=== PATIENT | female | born 1990 ===

== ENCOUNTER 2021-09-29 12:19 | Emergency (ER) | payer SELFPAY ==
[2021-09-29 18:25] VITALS: BP 128/75
[2021-09-29 18:37] LABS: Alanine Aminotransferase 8 units/L (7-56); Albumin 3.6 g/dL (3.9-5); Blood Urea Nitrogen 5 mg/dL (7-17); Calcium 8.5 mg/dL (8.4-10.2); Hemolysis Index 6
[2021-09-29 18:39] LABS: Hematocrit 34.8 % (30.3-42.9); Hemoglobin 11.6 gm/dl (10.1-14.3); Mean Corpuscular HGB Conc 33 % (30-34); Mean Corpuscular Volume 81 fl (79-97); Platelet Count 199 K/mm3 (140-440); Red Blood Count 4.28 M/mm3 (3.65-5.03); Red Cell Distribution Width 14.4 % (13.2-15.2)
[2021-09-29 18:43] LABS: BUN/Creatinine Ratio 13
[2021-09-29 19:02] LABS: Bacteria,Urine 1+ /HPF (Negative); Bilirubin,Urine NEG (Negative); Blood,Urine NEG (Negative); Color,Urine Straw (Yellow); Protein,Urine <15 mg/dL mg/dL (Negative); Urobilinogen,Urine < 2.0 mg/dL (<2.0)
--- NOTE | 2021-09-29 19:02 | Ultrasound Report ---
ULTRASOUND OBSTETRIC INDICATION / CLINICAL INFORMATION: preg, abdominal pain and cramping.. TECHNIQUE: Transabdominal. COMPARISON: None available. FINDINGS: There is a single intrauterine . Biparietal Diameter = 7.29 cm = 29.2 weeks.days Head Circumference = 28.07 cm = 30.5 weeks.days Abdominal Circumference = 26.78 cm = 30.6 weeks.days Femur Length = 5.68 cm = 29.4 weeks.days Average Ultrasound Age (AUA) = 30.1 weeks.days Heart Rate: 141 beats per minute. Estimated Weight in grams (if calculated): 1551 Position: cephalic. Cervix: closed. Length in cm (if measured): 4.0 Placenta: Grade 0 and free of the os. Amniotic Fluid Volume: Qualitatively normal Maternal Adnexa: No significant abnormality. IMPRESSION: 1. Single, living intrauterine with estimated sonographic age of 30.1 weeks.days 2. No significant sonographic abnormality. Signer Name: Karl Wright MD Signed: 09/29/2021 6:58 PM Workstation Name: [id number]
[2021-09-29] MEDS ORDERED: cephALEXin 500 MG CAP PO ONE (19:27)
[2021-09-29] MEDS ORDERED: POTASSIUM CHLORIDE ER 20 MEQ TAB PO ONE (19:27)
--- NOTE | 2021-09-29 19:30 | Emergency Department Report ---
ED Abdominal Pain HPI - General Chief Complaint: Medical Clearance Stated Complaint: NO OB DR Time Seen by Provider: 09/29/21 17:46 Source: patient Mode of arrival: Ambulatory Limitations: Language Barrier (Patient is [place] Citizen-speaking only and court interpreter phone line was used to communicate with patient.) - History of Present Illness Initial Comments: 31-year-old female with no past medical history presents to the emergency department for evaluation of intermittent abdominal cramping. She states that she thinks that she is about 5 months but has not had any care or testing, so she decided to come here to make sure that e verything was okay with the baby. Patient is G5, P4. She has not had any vaginal bleeding and she denies fever and dysuria. She states that she only has the cramping intermittently and is not currently having any cramping. She states that she does not have any insurance neither Social Security number so has not been able to obtain any care. MD Complaint: abdominal pain -: Gradual Location: diffuse Radiation: none Migration to: no migration Severity scale (0 -10): 1 Quality: cramping Consistency: intermittent, now resolved Associated Symptoms: denies: nausea, vomiting, diarrhea, fever, chills, dysuria, hematemesis, hematochezia, melena, hematuria, anorexia, syncope - Related Data Previous Rx's Medication Instructions Recorded Last Taken Type cephALEXin [Keflex] 500 mg PO Q12HR #14 cap 09/29/21 Unknown Rx Allergies Allergy/AdvReac Type Severity Reaction Status Date / Time No Known Allergies Allergy Verified 09/29/21 18:29 ED Review of Systems ROS: Stated complaint: NO OB DR Other details as noted in HPI Comment: All other systems reviewed and negative Constitutional: denies: chills, fever ENT: denies: congestion Respiratory: denies: cough, shortness of breath, SOB with exertion, SOB at rest, stridor, wheezing Cardiovascular: denies: chest pain, palpitations, dyspnea on exertion, orthopnea Gastrointestinal: abdominal pain. denies: nausea, vomiting, diarrhea, karen temesis, melena, hematochezia Genitourinary: denies: urgency, dysuria, frequency, hematuria, discharge, abnormal menses Musculoskeletal: denies: back pain Skin: denies: rash, lesions Neurological: denies: headache, weakness, numbness, paresthesias, abnormal gait, vertigo Hematological/Lymphatic: denies: easy bleeding, easy bruising ED Past Medical Hx - Social History Smoking Status: Never Smoker Substance Use Type: None - Medications Home Medications: Home Medications Medication Instructions Recorded Confirmed Last Taken Type cephALEXin [Keflex] 500 mg PO Q12HR #14 cap 09/29/21 Unknown Rx ED Physical Exam - General Limitations: Language Barrier ([place] Citizen-speaking only and court interpreter phone line was used to communicate with patient) General appearance: alert, in no apparent distress - Head Head exam: Present: atraumatic, normocephalic - Eye Eye exam: Present: normal appearance. Absent: conjunctival injection - Neck Neck exam: Present: normal inspection, full ROM. Absent: tenderness, lymphadenopathy - Respiratory Respiratory exam: Present: normal lung sounds bilaterally. Absent: respiratory distress, wheezes, rales, rhonchi, stridor, chest wall tenderness - Cardiovascular Cardiovascular Exam: Present: regular rate - GI/Abdominal GI/Abdominal exam: Present: soft, normal bowel sounds. Absent: tenderness, guarding, rebound, rigid - Extremities Exam Extremities exam: Present: normal inspection, full ROM, normal capillary refill. Absent: tenderness, pedal edema, joint swelling, calf tenderness - Back Exam Back exam: Present: normal inspection. Absent: CVA tenderness (R), CVA tenderness (L), vertebral tenderness - Neurological Exam Neurological exam: Present: alert, oriented X3, normal gait - Psychiatric Psychiatric exam: Present: normal affect, normal mood - Skin Skin exam: Present: warm, dry, intact, normal color ED Course Vital Signs 09/29/21 09/29/21 12:33 18:22 Temperature 98.0 F 98.1 F Pulse Rate 87 75 Respiratory 18 20 Rate Blood Pressure 103/58 128/75 [Right] O2 Sat by Pulse 98 100 Oximetry ED Medical Decision Making - Lab Data Result diagrams: 09/29/21 18:01 09/29/21 18:01 - Radiology Data Radiology results: report reviewed, image reviewed and transvaginal ultrasound: FINDINGS: There is a single intrauterine . Biparietal Diameter = 7.29 cm = 29.2 weeks.days Head Circumference = 28.07 cm = 30.5 weeks.days Abdominal Circumference = 26.78 cm = 30.6 weeks.days Femur Length = 5.68 cm = 29.4 weeks.days Average Ultrasound Age (AUA) = 30.1 weeks.days Heart Rate: 141 beats per minute. Estimated Weight in grams (if calculated): 1551 Position: cephalic. Cervix: closed. Length in cm (if measured): 4.0 Placenta: Grade 0 and free of the os. Amniotic Fluid Volume: Qualitatively normal Maternal Adnexa: No significant abnormality. IMPRESSION: 1. Single, living intrauterine with estimated sonographic age of 30.1 weeks.days 2. No significant sonographic abnormality. - Medical Decision Making 31-year-old female with no past medical history presents to the emergency department for evaluation of intermittent abdominal cramping. She states that she thinks that she is about 5 months but has not had any care or testing, so she decided to come here to make sure that everything was okay with the baby. Patient is G5, P4. She has not had any vaginal bleeding and she denies fever and dysuria. She states that she only has the cramping intermittently and is not currently having any cramping. She states that she does not have any insurance neither Social Security number so has not been able to obtain any care. No gross abnormalities noted on exam. Patient noted to be slightly hypokalemic on labs and was treated with one-time dose of potassium chloride 40 mEq p.o. Urine positive for UTI and patient will be treated with 7-day course of Keflex. Ultrasound positive for IUP at 30 weeks. Results reviewed with patient, and she is advised to follow-up with [facility] for further evaluation and management of period. She was given the names of several [facility] to follow-up with and advised to start attempting to get an appointment on tomorrow. She is advised to follow-up in the emergency department. She verbalizes understanding of and agreement with plan of care. Critical care attestation.: If time is entered above; I have spent that time in minutes in the direct care of this critically ill patient, excluding procedure time. ED Disposition Clinical Impression: Abdominal cramping affecting , Hypokalemia UTI (urinary tract infection) Qualifiers: Urinary tract infection type: acute cystitis Hematuria presence: without hematuria Qualified Code(s): N30.00 - Acute cystitis without hematuria Disposition: HOME / SELF CARE / HOMELESS Is pt being admited?: No Does the pt Need Aspirin: No Condition: Stable Instructions: Abdominal Pain During , [id number], Antibiotic Medicine, Adult, [id number], and Urinary Tract Infection, Potassium Content of Foods Additional Instructions: Take medication as prescribed. Follow-up with [facility] as soon as possible. Return to the emergency department as needed. Prescriptions: cephALEXin [Keflex] 500 mg PO Q12HR #14 cap Referrals: [facility] [Provider Group] - 3-5 Days [facility], [facility] [Provider Group] - 3-5 Days [facility] [Outside] - 3-5 Days [facility] [Outside] - 3-5 Days Time of Disposition: 19:30 Print Language: TAJIK
== END 2021-09-29 20:08 | disposition home or self-care (01) ==
LOC: ED 12:19
DX: O23.43 Unspecified infection of urinary tract in pregnancy, third trimester (principal); N39.0 Urinary tract infection, site not specified; O26.893 Other specified pregnancy related conditions, third trimester; R10.84 Generalized abdominal pain; E87.6 Hypokalemia; Z3A.30 30 weeks gestation of pregnancy; Z79.899 Other long term (current) drug therapy
CPT/HCPCS: 36415; 76805; 76817; 80053; 81001; 84702; 85027; 99284

== ENCOUNTER 2021-12-01 12:31 | Inpatient (IN) | payer SELFPAY ==
[2021-12-01] MEDS ORDERED: ACETAMINOPHEN 325 MG TAB PO PRN ×2 (13:58→15:53)
[2021-12-01] MEDS ORDERED: CARBOPROST TROMETHAMINE 250 MCG/1 ML INJ IM PRN (13:58)
[2021-12-01] MEDS ORDERED: BUTORPHANOL 2 MG/1 ML INJ IV PRN ×2 (13:58)
[2021-12-01] MEDS ORDERED: OXYTOCIN 10 UNIT/1 ML INJ IM PRN (13:58)
[2021-12-01] MEDS ORDERED: ePHEDrine SULFATE 50 MG/1 ML INJ IV PRN (13:58)
[2021-12-01] MEDS ORDERED: LOPERAMIDE 2 MG CAP PO PRN (13:58)
[2021-12-01] MEDS ORDERED: miSOPROStol 200 MCG TAB PR PRN (13:58)
[2021-12-01] MEDS ORDERED: TERBUTALINE 1 MG/1 ML INJ SUB-Q PRN (13:58)
[2021-12-01] MEDS ORDERED: MINERAL OIL 30 ML ORAL LIQD PO PRN (13:58)
[2021-12-01] MEDS ORDERED: METHYLERGONOVINE MALEATE 0.2 MG/ML VIAL IM PRN (13:58)
--- NOTE | 2021-12-01 13:58 | History and Physical Report ---
History of Present Illness Date of examination: 12/01/21 Date of admission: 12/01/21 Chief complaint: I'm in labor History of present illness: 31 y/o will all prior vaginal deliveries presents to labor an delivery in active labor. She has had no care. She had one ER visit at [facility] and by that ultrasound is now 39.1 weeks. Past History Past Medical History: no pertinent history - Obstetrical History Expected Date of Delivery: 12/07/21 Actual Gestation: 39 Week(s) 1 Day(s) : 5 Para: 4 Hx # Term Pregnancies: 4 Number of Living Children: 4 Medications and Allergies Allergies Allergy/AdvReac Type Severity Reaction Status Date / Time No Known Allergies Allergy Verified 12/01/21 13:21 Home Medications Medication Instructions Recorded Confirmed Last Taken Type Vit-Fe Fumar-FA [ 1 tab PO QDAY 12/01/21 12/01/21 Unknown History Vitamin] Review of Systems All systems: negative - Vital Signs Vital signs: Vital Signs Pulse BP 98 H 115/71 12/01/21 13:07 12/01/21 13:07 Temp Pulse Resp BP Pulse Ox 90 119/76 98 12/01/21 13:48 12/01/21 13:37 12/01/21 13:48 - Physical Exam Breasts: Positive: deferred Cardiovascular: Regular rate Lungs: Positive: Clear to auscultation Abdomen: Positive: soft Genitourinary (Female): Positive: normal external genitalia Vulva: both: normal Adnexa: both: normal Extremities: Positive: normal Deep Tendon Reflex Grade: Normal +2 - Obstetrical FHR: category 1 Uterine Contraction Monitor Mode: External Cervical Dilatation: 6 Cervical Effacement Percentage: 80 station: -1 Uterine Contraction Pattern: Regular Uterine Contraction Intensity: Moderate Results All other labs normal. Assessment and Plan A: Active labor at 39.1 weeks P: Expect
[2021-12-01] MEDS ORDERED: OXYTOCIN DRIP 30 UNITS/500 ML BAG IV SCH ×2 (14:00)
[2021-12-01] MEDS ORDERED: LACTATED RINGERS 1,000 ML IV SCH (14:00)
--- NOTE | 2021-12-01 14:16 | Event Note ---
Date: 12/01/21 S: Not feeling to many contractions O: VE /, arom clear fluid, irrregular contractions A: Active labor @ 39.1 weeks P: Expect
[2021-12-01] MEDS ORDERED: LIDOCAINE (2%) 20 MG/1 ML VIAL 20 ML MDV INFILTRATI ONE (14:30)
[2021-12-01 14:38] LABS: Hematocrit 33.6 % (30.3-42.9); Mean Corpuscular HGB Conc 33 % (30-34); Mean Corpuscular Volume 74 fl (79-97); Platelet Count 224 K/mm3 (140-440); Red Blood Count 4.52 M/mm3 (3.65-5.03)
--- NOTE | 2021-12-01 15:52 | Procedure Note ---
OB Delivery Note - Delivery Date of Delivery: 12/01/21 Surgeon: RONAN DRAPER Estimated blood loss: 200cc - Vaginal Delivery presentation: vertex Delivery position: OA Intrapartum events: none Delivery augmentation: rupture of membranes Delivery monitor: external FHT, external uterine Route of delivery: Delivery placenta: spontaneous Delivery laceration: none Anesthesia: none Delivery comments: viable female 8#-6oz on 12/01 @1538 over intact perineum. Placenta delivered 3 VCI. 8/9. QBL 200 cc - Infant A at 1 minute: 8 at 5 minutes: 9
[2021-12-01] MEDS ORDERED: MAGNESIUM HYDROXIDE (MOM) ORAL LIQD UDC PO PRN (15:53)
[2021-12-01] MEDS ORDERED: WITCH HAZEL/ GLYCERIN PAD TP PRN (15:53)
[2021-12-01] MEDS ORDERED: LANOLIN/ZINC/DIMETHICONE (LANSINOH) 7 GM TP PRN (15:53)
[2021-12-01] MEDS: oxyCODONE /ACETAMINOPHEN 5-325MG TAB PO PRN ×2 (16:41→23:50)
[2021-12-01 16:53] LABS: Hepatitis C Virus Antibody Non-Reactive (NonReactive)
[2021-12-02] MEDS: oxyCODONE /ACETAMINOPHEN 5-325MG TAB PO PRN (07:42)
[2021-12-02 08:24] LABS: Hematocrit 33.8 % (30.3-42.9); Hemoglobin 10.9 gm/dl (10.1-14.3)
--- NOTE | 2021-12-02 08:57 | Progress Note ---
Assessment and Plan A: PPD # 1 - stable P: Plan discharge home in am Discharge instructions given Subjective - Subjective Date of service: 12/02/21 Principal diagnosis: PPD # 1 Interval history: 31 y/o will all prior vaginal deliveries presents to labor an delivery in active labor. She has had no care. She had one ER visit at [facility] and by that ultrasound is now 39.1 weeks. Patient reports: appetite normal [place]: doing well Objective - Vital Signs Latest vital signs: Vital Signs Temp Pulse Resp BP BP Pulse Ox Pulse Ox 12/02/21 07:18 98.0 F 72 16 100/63 98 12/02/21 06:00 98.4 F 71 20 112/79 97 12/02/21 01:09 97.8 F 80 20 93/59 92 12/01/21 21:00 98.3 F 88 18 108/74 100 12/01/21 19:40 100 12/01/21 17:30 98.2 F 82 20 108/68 98 98 12/01/21 17:07 77 130/80 12/01/21 16:52 78 134/77 12/01/21 16:37 78 112/67 12/01/21 16:22 76 125/69 12/01/21 16:07 76 122/69 12/01/21 15:52 85 117/71 12/01/21 15:45 81 126/73 12/01/21 15:38 131 H 138/83 12/01/21 15:23 83 123/58 12/01/21 15:08 87 116/59 100 12/01/21 15:03 93 H 99 12/01/21 14:58 76 100 12/01/21 14:53 80 100 12/01/21 14:52 85 116/62 12/01/21 14:48 85 100 12/01/21 14:43 79 100 12/01/21 14:38 91 H 100 12/01/21 14:33 84 100 12/01/21 14:28 76 99 12/01/21 14:23 84 100 12/01/21 14:18 88 100 12/01/21 14:13 80 100 12/01/21 14:08 89 100 12/01/21 14:07 106 H 118/83 12/01/21 14:03 89 98 12/01/21 13:58 89 98 12/01/21 13:53 94 H 99 99 12/01/21 13:48 90 98 12/01/21 13:44 88 94 12/01/21 13:43 86 94 12/01/21 13:38 98 H 98 12/01/21 13:37 92 H 119/76 12/01/21 13:33 88 99 12/01/21 13:28 88 99 12/01/21 13:23 77 98 12/01/21 13:18 83 99 12/01/21 13:13 86 99 12/01/21 13:08 79 99 12/01/21 13:07 98 H 115/71 12/01/21 13:00 98.6 F Intake and Output 12/01/21 12/02/21 12/02/21 22:59 06:59 14:59 Intake Total 120 480 Output Total 800 Balance -680 480 Intake: Oral 240 Intake, Free Water 120 240 Output: Urine 800 Void 800 Other: Total, Intake Amount 240 Total, Output Amount 800 # Voids Void 1 2 Estimated Blood Loss 200 - Exam Breasts: Present: deferred Cardiovascular: Present: Regular rate Lungs: Present: Clear to auscultation Abdomen: Present: soft Vulva: both: normal Uterus: Present: fundal height below umbilicus Extremities: Present: normal Deep Tendon Reflex Grade: Normal +2 Incision: Present: normal - Labs Labs: Abnormal lab results 12/01/21 Range/Units Unknown MCV 74 L (79-97) fl MCH 24 L (28-32) pg
--- NOTE | 2021-12-02 08:59 | Discharge Summary ---
Providers - Providers Date of Admission: 12/01/21 12:32 Date of discharge: 12/03/21 Attending physician: MARCY MIRELES Primary care physician: MARCY MIRELES Hospitalization Reason for admission: active labor Delivery: Episiotomy: none Laceration: none Other procedures: none complications: none Discharge diagnosis: IUP at term delivered [place] baby: female Condition at discharge: Good Disposition: 01 HOME / SELF CARE / HOMELESS Plan - Provider Discharge Summary Activity: routine, no sex for 6 weeks, no strenuous exercise Diet: routine Instructions: routine Additional instructions: [] Smoking cessation referral if applicable(refer to patient education folder for contact #) [] Refer to [facility] Booklet Call your doctor immediately for: * Fever > 100.5 * Heavy vaginal bleeding ( >1 pad per hour) * Severe persistent headache * Shortness of breath * Reddened, hot, painful area to leg or breast * Drainage or odor from incision. * Keep incision clean and dry at all times and follow doctor's instructions regarding bathing/showering - Follow up plan Follow up: MARCY MIRELES MD [Primary Care Provider] - 7 Days
[2021-12-02] MEDS: IBUPROFEN 800 MG TAB PO PRN ×2 (11:48→22:49)
[2021-12-03] MEDS: IBUPROFEN 800 MG TAB PO PRN (10:08)
[2021-12-03 14:49] VITALS: BP 122/80
== END 2021-12-03 14:35 | disposition home or self-care (01) | DRG 807 ==
LOC: TRG 12:31 → APU 12:32 → TRG 14:05 → OB 17:30
PROVIDERS: ADMIT Obstetrics & Gynecology; ATTEND Obstetrics & Gynecology
PROC: 10E0XZZ Delivery of Products of Conception, External Approach (ICD-10-PCS; principal; 2021-12-01)
DX: O80 Encounter for full-term uncomplicated delivery (principal); Z37.0 Single live birth; Z3A.39 39 weeks gestation of pregnancy; Z20.822 Contact with and (suspected) exposure to COVID-19
CPT/HCPCS: 36415; 85014; 85018; 85027; 86592; 86706; 86762; 86803; 86850; 86900; 86901; 87806; G0378; J2590; U0003